=== PATIENT | female | born 1990 | race Caucasian/White ===

== ENCOUNTER 2016-12-05 23:00 | Outpatient (CLI) | payer BC ==
[~2016-12-05 23:00] MED LIST: ACNE MED; CALC-52; PREN1TAB73 PO
== END 2016-12-06 00:08 | disposition home or self-care (01) ==
LOC: OBOBS 23:00 → MC 23:00 → OBOBS 12-06 00:08 → EDSTATUS 12-18 23:06
PROVIDERS: ATTEND Obstetrics & Gynecology
DX: O26.893 Other specified pregnancy related conditions, third trimester (principal); N89.8 Other specified noninflammatory disorders of vagina; Z3A.38 38 weeks gestation of pregnancy

== ENCOUNTER 2016-12-15 01:10 | Inpatient (IN) | payer BC ==
[~2016-12-15] VITALS: Ht 170.2 cm; Wt 73.6 kg
[2016-12-15] MEDS: LR 1,000 ML IV PRN ×2 (00:01→01:43)
[2016-12-15] MEDS ORDERED: CALCIUM CARBONATE 500mg Chewable TAB PO PRN (01:45)
[2016-12-15] MEDS ORDERED: ACETAMINOPHEN 500 MG TABLET PO PRN (01:45)
[2016-12-15] MEDS ORDERED: LIDOCAINE 1% (10mg/ml) 2ml SDV ID PRN (01:45)
[2016-12-15] MEDS ORDERED: MAG-AL + SIM LIQUID 30 ML UDC PO PRN (01:45)
[2016-12-15 01:54] VITALS: BP 117/75; PULSE 118; TEMP 98.5
[2016-12-15 01:54] LABS: HCT - HEMATOCRIT 39.9 % (36-46); HGB - HEMOGLOBIN 13.2 GM/DL (12-16); MEAN CORPUSCULAR HGB 28.3 UUG (26-34); MEAN CORPUSCULAR HGB CONC(MCHC 33.1 GM/DL (31-37); MEAN CORPUSCULAR VOLUME 85.4 UM3 (80-100); MEAN PLATELET VOLUME 11.1 UM3 (9.4-12.4); RED BLOOD COUNT 4.67 M/MM3 (4.00-5.20); WBC - WHITE BLOOD COUNT 8.8 T/MM3 (4.5-11.0)
[2016-12-15] MEDS ORDERED: PSEU120T64 PO (03:11)
--- NOTE | 2016-12-15 05:28 | ANESOB ---
Epidural/ Date/Time DATE: 12/15/16 TIME: 05:27 Preop Diagnosis Procedure: Labor Epidural Plan: Epidural Height: 5 ' 7.00 " Weight: 73.630 kg BMI: kg/m2 Temperature: 98.5 Blood Pressure: 117/75 Heart Rate: 118 Respiratory Rate: 18 SaO2: 100 P:0 Medications & Allergies Inpatient Medications Current Medications Medications (Trade) Dose Ordered Sig/Jayde Start Time Stop Time Status Last Admin Dose Admin Lidocaine HCl 0.2 mg 0.2 mg PRN PRN 12/15/16 01:45 UNV Lactated Ringer's (Lactated Ringers) 1,000 ml @ 0 mls/hr Q0M PRN 12/15/16 01:37 UNV 12/15/16 01:43 0 MLS/HR Acetaminophen (Tylenol Extra Strength) 1-2 TABS = 500-1,000 MG Q4H PRN 12/15/16 01:45 UNV Al Hydroxide/Mg Hydroxide (Maalox) 30 ml Q4H PRN 12/15/16 01:45 UNV Calcium Carbonate (TUMS Regular Strength) 1-2 TABS Q2H PRN 12/15/16 01:45 UNV Calcium Carbonate (Calcium) 500 Mg Tablet, (Reported) Last Taken: on 12/15/16 0030 Pnv95/Ferrous Fumarate/FA ( Tablet) 1 Each Tablet, 1 TAB PO DAILY, (Reported) Last Taken: on 12/15/16 0030 Pseudoephedrine HCl (Sudafed 12-Hour) 120 Mg Tablet.er, 1 TAB PO Q6H, (Reported) Last Taken: on 12/14/16 2300 [Acne Med] , (Reported) Coded Allergies: diphenhydramine HCl (Verified Allergy, Unknown, HYPERACTIVITY, 11/30/16) AN INFANT Medical/Surgical History Anesthesia PMH: Denies: *Angina, *Diabetes, *Hypertension, *NE, Anesthesia Reactions, Asthma, CHF, COPD, CVA/Stroke/TIA, Hiatal Hernia, Malignant Hyperthermia, Pneumonia, Reflux, Seizures, Tuberculosis Smoking Status: Never smoker Does patient use chewing tobac: No Second Hand Exposure: No Substance Use Type: does not use Alcohol Intake: none Anesthesia Adverse Reactions: FOUND none Family Hx of Anesthesia Advers: none Hx of Motion Sickness: No Complications During : No Pertinent Findings Laboratory Tests 12/15/16 01:32 EKG Rhythm: Sinus Rhythm Physical Exam Respiratory: Lungs clear Cardiovascular: Regular rate, rhythm Airway Assessment Mallampati Score: II TMD: 3 Fingerbreadths Neck Extension: Good Overall Assessment: May Be Diff Intubation ASA: 2 Discussion Discussed risks/options/alternatives of anesthesia. Patient consents. Nursing pain assessment noted. Present for Discussion: Present: Spouse Attestation Statement Prior to the delivery of any anesthetic medication, I examined the patient, developed the plan, obtained the patient's consent and discussed the risk and benefits of the procedure with the patient/guardian. If the note happens to be signed after anesthesia start time, it is only due to providing efficient care of the patient and documenting at a time when the computer is available. VINNY CASEY SOFTWARE CONFIGURATION MANAGER Dec 15, 2016 05:28
[2016-12-15] MEDS ORDERED: NALOXONE 0.4mg/ml INJECTION IV PRN (05:30)
[2016-12-15] MEDS ORDERED: ROPIVACAINE 1% 200 MG, SUFENTANIL 50 MCG in NORMAL SALINE 80 ML EPI PRN (05:30)
[2016-12-15] MEDS ORDERED: ONDANSETRON 4mg/2ml INJECTION IV PRN (05:30)
[2016-12-15] MEDS ORDERED: EPHEDRINE SULFATE 50mg/ml INJECTION IV PRN (09:00)
[2016-12-15] MEDS ORDERED: OXYTOCIN 30 UNIT in D5W 500 ML IV ONE (11:33)
[2016-12-15] MEDS ORDERED: MILK OF MAGNESIA 30 ML SUSP PO PRN (11:45)
[2016-12-15] MEDS ORDERED: HYDROCORTISONE 2.5% CREAM 30 GM RECTALLY PRN (11:45)
[2016-12-15] MEDS ORDERED: PHENYLEPHRINE RECTAL SUPPOSITORY RECTALLY PRN (11:45)
[2016-12-15 14:15] VITALS: BP 123/67; PULSE 127; RESP 18; TEMP 97.9; O2SAT 100
--- NOTE | 2016-12-15 14:30 | LDNF ---
DATE OF DELIVERY: 12/15/2016 DELIVERY NOTE The patient is a 26-year-old, G1, P0, who presented at 39 weeks 4 days estimated gestational age after spontaneous rupture of membranes and she did proceed into spontaneous onset of labor. She was able to progress through labor relatively uneventfully. She did have a few episodes of deceleration that were mostly positional and blood pressure related. Aside from that, she was able to progress to complete without any intervention. At 8 cm of dilation and +1 station, there was found to be another bulging bag which was ruptured and also showed clear fluid. Patient was able to push effectively. Patient delivered the head. There was no evidence of any nuchal cord, so we went directly onto delivery of the shoulders. The baby did seem to be relatively large in size. Anterior shoulders delivered without any difficulty as did the posterior shoulder. The remainder of the delivered with one additional push. Infant's mouth and nose were suctioned and baby was placed on mother's abdomen for further stimulation. After cessation of pulsing in the cord, the cord was doubly clamped and was cut by the father of the baby. Placenta delivered five minutes after time and was unremarkable. Periurethral, perineal, cervical and vaginal areas were all evaluated for lacerations. A first-degree posterior vaginal midline laceration was noted with an extension up onto the left labia. There was also an additional left labial skin tear as well as a right labial skin tear. The repair is described in the delivery note in [facility]. Infant was a male infant by the name of Nomi Miquel Luoclara. He was LGA at 4050 grams or 8 pounds, 14.8 ounces. Apgars were 7/9/9. At the time of this dictation, both mother and baby are doing well. [facility]
[2016-12-15 15:17] VITALS: BP 119/72; PULSE 93; RESP 18; TEMP 97.7; O2SAT 99
[2016-12-15] MEDS: HYDROCODONE/APAP 5 mg/325 mg TABLET PO PRN ×2 (15:33→20:49)
[2016-12-15] MEDS: IBUPROFEN 800 MG TABLET PO PRN (15:33)
[2016-12-15 22:12] VITALS: BP 114/72; PULSE 84; RESP 18; TEMP 97.9; O2SAT 97
[2016-12-16] MEDS: IBUPROFEN 800 MG TABLET PO PRN ×2 (01:27→12:34)
--- NOTE | 2016-12-16 02:33 | NUR ---
Chart Check 24 hour chart check completed
--- NOTE | 2016-12-16 02:33 | NUR ---
Shift Summary Pt's VS stable. Fundus firm, minimal lochia, and voiding w/o difficulty. Pt tolerating po fluids and regular diet. Pt performing cares for self and baby with help of at bedside. Pain controlled with po pain meds as ordered, Motrin and Cushman. Pt up ad dee in room and [facility] unit. Pt has showered. Pt attentive to infant needs and bonding appropriately. Pt baby well in cradle hold q2-3 hrs or when shows hunger cues. RN at bedside multiple times assisting with . Will continue to monitor per plan of care.
[2016-12-16 07:00] VITALS: BP 108/68; PULSE 72; RESP 16; TEMP 98; O2SAT 99
[2016-12-16] MEDS: HYDROCODONE/APAP 5 mg/325 mg TABLET PO PRN (08:29)
[2016-12-16] MEDS ORDERED: DOCUSATE CALCIUM 240 MG CAPSULE PO SCH (09:00)
--- NOTE | 2016-12-16 10:02 | PNPDOC ---
MC Prog Note 12/16/16 vss af no c/o this am cont routine care path disc dc instructions q&a-krb GINA VALERA MD Dec 16, 2016 10:02
--- NOTE | 2016-12-16 10:45 | NUR ---
WILLIE THIS SW MET WITH PT IN ROOM. MOTHER WAS SITTING IN BED AND FOB WAS SITTING AT BEDSIDE HOLDING BABY. THIS WORKER INTRODUCED SELF AND ROLE OF CASE MANAGEMENT. FAMILY LIVES WITH MATERNAL GRANDPARENTS AT THIS TIME UNTIL THEIR NEW HOME IS COMPLETED. PARENTS WERE GIVEN INFORMATION ON [employer] PROGRAM, WIC, PAT, AND INFORMATION ON OBTAINING A BREAST PUMP THROUGH INSURANCE. MOTHER ALSO HAS THE OPTION OF OBTAINING A BREAST PUMP IN [place] WITH THE PRESCRIPTION. MOTHER REPORTED THAT SHE WOULD BE ABLE TO OBTAIN A BREAST PUMP. EXTENDED FAMILY AVAILABLE IF NEEDED. MOTHER IS PLANNING TO STAY AT HOME WITH BABY. THIS WORKER PROVIDED CONTACT INFORMATION FOR THIS WORKER AND ENCOURAGED TO CALL WITH ANY QUESTIONS OR NEEDS. QUESTIONS ANSWERED OF FAMILY. PARENTS APPRECIATIVE OF THIS WORKER'S VISIT.
[2016-12-16] MEDS ORDERED: HYDR-4246 PO (13:05)
[2016-12-16] MEDS ORDERED: IBUP-1547 PO (13:05)
--- NOTE | 2016-12-16 13:57 | ANESPO ---
Post-Op Note Date 12/16/16 Time: 13:57 Status Pt Participated in Evaluation: Pt participated in person Vital Signs Date Time Temp Pulse Resp B/P Pulse Ox O2 Delivery O2 Flow Rate FiO2 12/16/16 07:00 98.0 72 16 108/68 99 Room Air Respiratory Function: Airway patent Cardiovascular Function: Regular pulse Telemetry Pattern: SR Mental Status: Alert/oriented Pain Level Intensity: 0 Unable to Assess Pain Due To: Pt Sleeping Hydration: Taking po fluids Complications during Recovery None apparent Follow-Up Instructions Instructions Per Surgeon VINNY CASEY CRNA Dec 16, 2016 13:57
--- NOTE | 2016-12-16 14:03 | NUR ---
Dismissal Dismissal instructions reviewed. Verbalizes understanding. Has paper Rx or Ibuprofen and [place]. Patient is up and about caring for self and baby. Pain controlled with Ibuprofen and [place], one tab at a time. Fundus firm, minimal lochia rubra. Dismissed with and baby.
== END 2016-12-16 13:45 | disposition home or self-care (01) | DRG 775 ==
LOC: OBOBS 01:10 → MC 01:11 → OBOBS 01:11 → MC 01:22
PROVIDERS: ADMIT Family Medicine; ATTEND Family Medicine
PROC: 10E0XZZ Delivery of Products of Conception, External Approach (ICD-10-PCS; principal; 2016-12-15)
PROC: 0UQMXZZ Repair Vulva, External Approach (ICD-10-PCS; 2016-12-15)
PROC: 0HQ9XZZ Repair Perineum Skin, External Approach (ICD-10-PCS; 2016-12-15)
DX: O36.63X0 Maternal care for excessive fetal growth, third trimester, not applicable or unspecified (principal); O70.0 First degree perineal laceration during delivery; Z3A.39 39 weeks gestation of pregnancy; Z37.0 Single live birth
CPT/HCPCS: 84112; 85027; 86850; 86900; 86901